=== PATIENT | female | born 1940 | race Caucasian/White ===

== ENCOUNTER 2017-06-19 08:10 | Day surgery (SDC) | payer OTHER ==
[~2017-06-19 08:10] MED LIST: AK-DILATE 2.5% OPHTH 1 DOSE OP ONE; ALPHAGAN-P OPHTH 1 DOSE AFFEYE ONE; CYCLOGYL 1% OPHTH 1 DOSE OP ONE; MYDRIACIL OPHTH 1 DOSE AFFEYE ONE; PROLENSA OPHTH 1 DOSE AFFEYE ONE; TETRACAINE 0.5% OPHTH 1 DOSE AFFEYE ONE; VIGAMOX 0.5% OPHTH 1 DOSE AFFEYE ONE
[2017-06-19] MEDS ORDERED: NS 500 ML IV 500 ML IV ONE (08:22)
[2017-06-19] MEDS ORDERED: DIPRIVAN VIAL ONE (10:54)
[2017-06-19] MEDS ORDERED: VERSED ONE (10:54)
[2017-06-19] MEDS ORDERED: TETRACAINE 0.5% OPHTH 1 DOSE AFFEYE ONE (11:11)
[2017-06-19] MEDS ORDERED: BETADINE OPHTH SOLN 5% EACHEYE ONE (11:11)
[2017-06-19] MEDS ORDERED: BSS OPHTH (PLAIN) 500 ML with VANCOMYCIN HCL 500 MG VIAL 25 MG, ADRENALINE CHL INJ 1 MG IR ONE ×3 (11:22)
[2017-06-19] MEDS ORDERED: XYLOCAINE-MPF 1% IJ ONE (11:22)
[2017-06-19] MEDS ORDERED: ADRENALINE CHL INJ IJ ONE (11:22)
[2017-06-19] MEDS ORDERED: DUOVISC IO ONE (11:22)
[2017-06-19] MEDS ORDERED: VIGAMOX 0.5% OPHTH 1 DOSE AFFEYE ONE ×2 (11:25→11:46)
[2017-06-19] MEDS ORDERED: VISCOAT 0.5 ML IO ONE (11:29)
[2017-06-19 12:03] VITALS: BP 113/53
== END 2017-06-19 12:07 | disposition home or self-care (01) ==
LOC: SURG1 08:10
PROVIDERS: ATTEND Ophthalmology
PROC: 08DJ3ZZ Extraction of Right Lens, Percutaneous Approach (ICD-10-PCS; principal; 2017-06-19 19:30)
PROC: 08RJ3JZ Replacement of Right Lens with Synthetic Substitute, Percutaneous Approach (ICD-10-PCS; principal; 2017-06-19 19:30)
DX: H25.11 Age-related nuclear cataract, right eye (principal); H25.011 Cortical age-related cataract, right eye; H25.041 Posterior subcapsular polar age-related cataract, right eye
CPT/HCPCS: 99100; A4217; J0170; J2250; J3370; J3490

== ENCOUNTER 2017-07-03 09:43 | Day surgery (SDC) | payer OTHER ==
[2017-07-03] MEDS ORDERED: TETRACAINE 0.5% OPHTH 1 DOSE AFFEYE ONE ×4 (10:20→12:44)
[2017-07-03] MEDS ORDERED: VIGAMOX 0.5% OPHTH 1 DOSE AFFEYE ONE ×5 (10:21→12:59)
[2017-07-03] MEDS ORDERED: NS 500 ML IV 500 ML IV ONE (10:26)
[2017-07-03] MEDS ORDERED: PROLENSA OPHTH 1 DOSE AFFEYE ONE (10:32)
[2017-07-03] MEDS ORDERED: ALPHAGAN-P OPHTH 1 DOSE AFFEYE ONE (10:33)
[2017-07-03] MEDS ORDERED: AK-DILATE 2.5% OPHTH 1 DOSE OP ONE ×4 (10:34→10:37)
[2017-07-03] MEDS ORDERED: MYDRIACIL OPHTH 1 DOSE AFFEYE ONE ×4 (10:34→10:37)
[2017-07-03] MEDS ORDERED: CYCLOGYL 1% OPHTH 1 DOSE OP ONE ×4 (10:34→10:37)
[2017-07-03] MEDS ORDERED: BETADINE OPHTH SOLN 5% EACHEYE ONE (12:35)
[2017-07-03] MEDS ORDERED: ADRENALINE CHL INJ IJ ONE ×2 (12:40→12:44)
[2017-07-03] MEDS ORDERED: XYLOCAINE-MPF 1% IJ ONE ×2 (12:41→12:44)
[2017-07-03] MEDS ORDERED: DUOVISC IO ONE ×2 (12:41→12:44)
[2017-07-03] MEDS ORDERED: BSS OPHTH (PLAIN) 500 ML with VANCOMYCIN HCL 500 MG VIAL 25 MG, ADRENALINE CHL INJ 1 MG IR ONE ×3 (12:42)
[2017-07-03 13:22] VITALS: BP 142/80
[2017-07-03] MEDS ORDERED: DIPRIVAN VIAL ONE (15:42)
== END 2017-07-03 13:20 | disposition home or self-care (01) ==
LOC: SURG1 09:43
PROVIDERS: ATTEND Ophthalmology
PROC: 08RK3JZ Replacement of Left Lens with Synthetic Substitute, Percutaneous Approach (ICD-10-PCS; principal; 2017-07-03 18:00)
PROC: 08DK3ZZ Extraction of Left Lens, Percutaneous Approach (ICD-10-PCS; principal; 2017-07-03 18:00)
DX: H25.12 Age-related nuclear cataract, left eye (principal); H25.012 Cortical age-related cataract, left eye
CPT/HCPCS: 99100; A4217; J0170; J3370; J3490